=== PATIENT | female | born 2000 | race Caucasian/White ===

== ENCOUNTER 2024-03-22 11:24 | Day surgery (SDC) | payer OTHER ==
[~2024-03-22] VITALS: Ht 170.2 cm; Wt 81.6 kg
[~2024-03-22 11:24] MED LIST: SRONYX PO
[2024-03-22] MEDS ORDERED: LIDOCAINE 2% 100MG/5ML SDV (FOR ANES.) As Ordered ONE (14:14)
[2024-03-22] MEDS ORDERED: propofoL 200 MG/20 ML VIAL As Ordered ONE (14:14)
[2024-03-22] MEDS ORDERED: ROCURONIUM BROMIDE 50MG/5ML VIAL As Ordered ONE (14:15)
[2024-03-22] MEDS ORDERED: MIDAZOLAM INJ 2MG/2ML VIAL As Ordered ONE (14:16)
[2024-03-22] MEDS ORDERED: fentaNYL 100 MCG/2 ML INJECTION As Ordered ONE (14:17)
[2024-03-22] MEDS ORDERED: ACETAMINOPHEN 1000MG 100ML IV BAG As Ordered ONE (14:41)
[2024-03-22] MEDS ORDERED: ONDANSETRON 4MG 2ML VIAL As Ordered ONE (15:00)
[2024-03-22] MEDS ORDERED: SUGAMMADEX SODIUM 500 MG/5 ML VIAL (BRIDION) As Ordered ONE (15:11)
[2024-03-22] MEDS ORDERED: dexmedeTOMIDine (4MCG/ML)200MCG/50ML BTL (PRECEDEX) As Ordered ONE (15:23)
[2024-03-22] MEDS ORDERED: LR 1,000 ML IV SCH (16:00)
[2024-03-22] MEDS ORDERED: ONDANSETRON 4MG 2ML VIAL IV PRN (16:00)
[2024-03-22] MEDS ORDERED: METOCLOPRAMIDE INJ 10MG/2ML VIAL IV PRN (16:00)
[2024-03-22] MEDS ORDERED: diphenhydrAMINE 50MG/ML VIAL IV PRN (16:00)
[2024-03-22] MEDS ORDERED: oxyCODONE 5MG TAB PO PRN (16:00)
[2024-03-22] MEDS ORDERED: MEPERIDINE 25 MG/ML 1ML VIAL IV PRN (16:00)
[2024-03-22] MEDS: fentaNYL 100 MCG/2 ML INJECTION IV PRN (16:11)
[2024-03-22 17:51] VITALS: BP 133/71; TEMP 97.1; O2SAT 98
== END 2024-03-22 18:00 | disposition home or self-care (01) ==
LOC: M SDC 11:24
PROVIDERS: ATTEND Otolaryngology
DX: J35.3 Hypertrophy of tonsils with hypertrophy of adenoids (principal); Z72.0 Tobacco use
CPT/HCPCS: 42821; 81025; 88302; J0131; J0665; J1100; J2250; J2405; J3010